=== PATIENT | female | born 1990 | race Caucasian/White ===

== ENCOUNTER 2020-10-31 05:12 | Inpatient (IN) | payer MEDICAID, OTHER, SELFPAY ==
[2020-10-31] MEDS ORDERED: Promethazine HCl 25 MG/ML VIAL IM PRN ×3 (05:43→10:30)
[2020-10-31] MEDS ORDERED: Lactated Ringer's 1,000 ML IV SCH (05:43)
[2020-10-31] MEDS ORDERED: Ondansetron PF 4 MG/2 ML Vial IVP PRN ×3 (05:43→10:30)
[2020-10-31] MEDS ORDERED: Bicitra 30 ML UDCUP PO PRN (05:43)
[2020-10-31] MEDS ORDERED: Acetaminophen 500 MG TAB PO PRN (05:43)
[2020-10-31] MEDS ORDERED: CEFAZOLIN 2 GM in Premix Bag 1 BAG IVPB SCH (05:43)
[2020-10-31] MEDS ORDERED: Famotidine/PF 20 mg/2ml Vial SLOW IVP PRN (05:43)
[2020-10-31] MEDS ORDERED: hydrALAZINE 20 MG/ML VIAL SLOW IVP PRN ×2 (05:43→10:30)
[2020-10-31 06:28] VITALS: BMI 25.0
[2020-10-31] MEDS ORDERED: Oxytocin 10 UNITS/ML VIAL ONE (06:39)
[2020-10-31] MEDS ORDERED: Phenylephrine 10 MG/ML VIAL ONE (06:39)
[2020-10-31] MEDS ORDERED: PHENYLEPHRINE-NS 100 MCG/ML 10 ML SYRINGE ONE (06:39)
[2020-10-31] MEDS ORDERED: Morphine PF 10 MG/10 ML VIAL ONE (06:40)
[2020-10-31] MEDS ORDERED: Ketorolac Tromethamine 30 MG/ML VIAL ONE (06:40)
[2020-10-31 06:41] LABS: Hemoglobin 12.8 g/dL (12.0-15.5); Mean Corpuscular Hemoglobin 30.1 pg (27.0-33.0); Mean Corpuscular Volume 88.5 fl (81.6-98.3); Mean Platelet Volume 11.9 fl (7.4-10.4); Platelet Count 214 10x3/uL (150-450); RBC Distribution Width 13.1 % (11.5-14.5); Red Blood Cell (RBC) Count 4.25 10x6/uL (3.90-5.03)
[2020-10-31] MEDS ORDERED: Ondansetron PF 4 MG/2 ML Vial ONE (07:43)
[2020-10-31 07:44] LABS: Hep B Surf Ag Non-Reactive S/CO (NonReactive); Syphilis Antibody Nonreactive (Nonreactive); Syphilis Antibody Index 0.08 S/CO (<1.00 Non-Reactive)
[2020-10-31 07:48] LABS: HBSAg Index 0.17 S/CO (0-0.99)
[2020-10-31] MEDS ORDERED: ePHEDrine Sulfate 50 MG/10 ML VIAL ONE (07:58)
[2020-10-31] MEDS ORDERED: L&D-Morphine 4 MG/ML VIAL SLOW IVP PRN (09:14)
[2020-10-31] MEDS ORDERED: Eucerin (Mineral Oil/Petrolatum,White) 30 gm Jar TOP PRN (09:14)
[2020-10-31] MEDS ORDERED: Promethazine HCl 25 MG SUPP PR PRN (09:14)
[2020-10-31] MEDS ORDERED: HYDROmorphone 2 MG/ML VIAL SLOW IVP PRN (09:14)
[2020-10-31] MEDS ORDERED: Naloxone HCl 0.4 mg/ml Vial IV PRN (09:14)
[2020-10-31] MEDS ORDERED: Ondansetron HCl/PF 4 MG/2 ML Vial IVP PRN (09:14)
[2020-10-31] MEDS ORDERED: Naloxone HCl 0.4 mg/ml Vial IVP PRN ×2 (09:14)
[2020-10-31] MEDS ORDERED: diphenhydrAMINE 50 MG/ML VIAL IVP PRN (09:14)
[2020-10-31] MEDS ORDERED: Meperidine HCl/PF 25 MG/ML VIAL SLOW IVP PRN (09:14)
[2020-10-31] MEDS ORDERED: Communication Order-Pharmacy FS SCH (09:15)
[2020-10-31] MEDS ORDERED: NS w/ Oxytocin 30 units 500 ML ONE (09:57)
[2020-10-31] MEDS ORDERED: Hydrocerin (Eucerin) Cream 120 gm Jar TOP PRN (10:15)
[2020-10-31 10:25] LABS: RapidComm Collect By CBN
[2020-10-31] MEDS ORDERED: Lanolin Ointment 7 GM TUBE TOP PRN (10:30)
[2020-10-31] MEDS ORDERED: Adacel (T-DAP) 0.5 ML SYRINGE IM ONE (10:30)
[2020-10-31] MEDS ORDERED: Meperidine HCl/PF 25 MG/ML VIAL IM PRN (10:30)
[2020-10-31] MEDS ORDERED: HYDROcodone/Acetaminophen 5/325 mg Tablet PO PRN (10:30)
[2020-10-31] MEDS ORDERED: diphenhydrAMINE 25 MG CAP PO PRN (10:30)
[2020-10-31] MEDS ORDERED: Simethicone Chewable 80 MG TAB PO PRN (10:30)
[2020-10-31] MEDS ORDERED: Bisacodyl 10 MG SUPP PR PRN (10:30)
[2020-10-31] MEDS ORDERED: Docusate Calcium (SURFAK) 240 MG CAP PO SCH (11:30)
[2020-10-31] MEDS ORDERED: Ferrous Sulfate 325 MG TAB PO SCH (11:30)
[2020-10-31] MEDS: Ketorolac Tromethamine 30 MG/ML VIAL IVP PRN ×2 (13:36→21:10)
[2020-10-31] MEDS: Ferrous Sulfate 325 MG TAB PO SCH (21:00)
[2020-10-31] MEDS: Docusate Calcium (SURFAK) 240 MG CAP PO SCH (21:00)
[2020-11-01] MEDS: Ketorolac Tromethamine 30 MG/ML VIAL IVP PRN (03:53)
[2020-11-01 06:49] LABS: Hemoglobin 11.5 g/dL (12.0-15.5); Mean Corpuscular HGB CONC 33.1 g/dL (32.0-36.0); Mean Corpuscular Hemoglobin 29.3 pg (27.0-33.0); Mean Corpuscular Volume 88.5 fl (81.6-98.3); Mean Platelet Volume 11.5 fl (7.4-10.4); Platelet Count 201 10x3/uL (150-450); RBC Distribution Width 13.1 % (11.5-14.5); Red Blood Cell (RBC) Count 3.92 10x6/uL (3.90-5.03); White Blood Cell (WBC) Count 9.8 10x3/uL (3.5-10.5)
[2020-11-01] MEDS: Prenatal Vitamin 1 TAB PO SCH (07:56)
[2020-11-01] MEDS: Docusate Calcium (SURFAK) 240 MG CAP PO SCH ×2 (07:56→22:07)
[2020-11-01] MEDS: HYDROcodone/Acetaminophen 5/325 mg Tablet PO PRN ×4 (07:56→22:08)
[2020-11-01] MEDS: Ferrous Sulfate 325 MG TAB PO SCH ×2 (08:27→22:07)
[2020-11-01] MEDS: Ibuprofen 800 MG TAB PO SCH ×2 (14:15→22:07)
[2020-11-02] MEDS: Ibuprofen 800 MG TAB PO SCH (04:52)
[2020-11-02] MEDS: HYDROcodone/Acetaminophen 5/325 mg Tablet PO PRN ×3 (04:52→13:18)
[2020-11-02] MEDS: Prenatal Vitamin 1 TAB PO SCH (09:04)
[2020-11-02] MEDS: Docusate Calcium (SURFAK) 240 MG CAP PO SCH (09:04)
[2020-11-02 15:28] VITALS: BP 109/62; TEMP 98.3
== END 2020-11-02 13:10 | disposition home or self-care (01) | DRG 786 ==
LOC: CSHLD 05:12 → CSHPP 11:10
PROVIDERS: ADMIT Family Medicine; ATTEND Family Medicine
PROC: 10D00Z1 Extraction of Products of Conception, Low, Open Approach (ICD-10-PCS; principal; 2020-10-31)
DX: O34.211 Maternal care for low transverse scar from previous cesarean delivery (principal); U07.1 COVID-19; O98.52 Other viral diseases complicating childbirth; Z3A.39 39 weeks gestation of pregnancy; Z37.0 Single live birth
CPT/HCPCS: 36415; 51702; 82805; 85027; 86780; 86850; 86900; 86901; 87340; J0690; J1200; J1885; J2270; J2370; J2405; J2550; J2590